=== PATIENT | female | born 1940 | race Caucasian/White ===

== ENCOUNTER 2021-04-16 17:55 | Emergency (ER) | payer MEDICARE, OTHER ==
[~2021-04-16] VITALS: Ht 167.6 cm; Wt 62.1 kg
[~2021-04-16 17:55] MED LIST: CALCIUM CARBON500 MG PO; DIOVAN HCT 3201 EAC1 PO; FOLIC ACID1 MG PO; HYDRALAZINE HCL25 MG PO; METOPROLOL SUCC50 MG PO; PRAVASTATIN SOD40 MG PO; VITAMIN D400 UNIT PO
[2021-04-16] MEDS ORDERED: DICYCLOMINE HCL 20 MG/2 ML VIAL IM ONE (18:00)
[2021-04-16 18:35] LABS: BASOPHILS % 0.2 % (0.0-1.0); EOSINOPHILS % 0.2 % (0.0-6.0); HEMATOCRIT 32.1 % (34.2-44.1); HEMOGLOBIN 10.5 g/dL (12.0-16.0); LYMPHOCYTES # (AUTO) 1.1 (1.0-3.2); LYMPHOCYTES % 19.8 % (18.0-39.1); MEAN CORPUSCULAR HEMOGLOBIN 32.1 pg (28-32); MEAN CORPUSCULAR HGB CONC 32.7 g/dL (31-35); MEAN CORPUSCULAR VOLUME 98.2 fL (81-99); MONOCYTES # (AUTO) 0.9 (0.2-0.8); MONOCYTES % 16.4 % (4.4-11.3); NEUTROPHILS # (AUTO) 3.6 (2.1-6.9); PLATELET COUNT 246 x10e3/uL (140-360); RED BLOOD COUNT 3.27 x10e6/uL (3.6-5.1); RED CELL DISTRIBUTION WIDTH 12.6 % (11.7-14.4)
[2021-04-16 18:50] LABS: ALANINE AMINOTRANSFERASE 14 IU/L (0-55); ALBUMIN/GLOBULIN RATIO 1.1 (0.8-2.0); ALKALINE PHOSPHATASE 89 IU/L (40-150); ANION GAP 16.6 mmol/L (8-16); BLOOD UREA NITROGEN 17 mg/dL (7-26); BUN/CREATININE RATIO 14 (6-25); CALCIUM 10.1 mg/dL (8.4-10.2); CARBON DIOXIDE 25 mmol/L (22-29); CHLORIDE 98 mmol/L (98-107); CREATINE KINASE 96 IU/L (29-168); CREATININE, SERUM 1.22 mg/dL (0.57-1.11); EST GLOMERULAR FILTRATION RATE 42 ML/MIN (60-); GLUCOSE 119 mg/dL (74-118); POTASSIUM 3.6 mmol/L (3.5-5.1); SODIUM 136 mmol/L (136-145)
[2021-04-16 18:59] LABS: AMYLASE 111 U/L (25-125); LIPASE 49 U/L (8-78)
[2021-04-16 19:12] LABS: CLARITY,URINE CLEAR (CLEAR); COLOR,URINE YELLOW (YELLOW); KETONES,URINE NEGATIVE (NEGATIVE); LEUKOCYTE ESTERASE ,URINE TRACE (NEGATIVE); NITRITE,URINE NEGATIVE (NEGATIVE); PROTEIN,URINE DIPSTICK NEGATIVE (NEGATIVE); URINE UROBILINOGEN 0.2 mg/dL (0.2 - 1)
[2021-04-16 19:14] LABS: BACTERIA,URINE FEW /HPF; EPITHELIAL CELLS,URINE FEW /LPF; RBC,URINE >50 /HPF (0-5)
[2021-04-16 19:15] LABS: RENAL EPITHELIAL CELLS,URINE FEW
== END 2021-04-16 22:30 | disposition home or self-care (01) ==
LOC: ER 17:59
DX: N39.0 Urinary tract infection, site not specified (principal); K76.89 Other specified diseases of liver; N28.1 Cyst of kidney, acquired; I10 Essential (primary) hypertension; Z91.041 Radiographic dye allergy status; Z79.899 Other long term (current) drug therapy; Z87.19 Personal history of other diseases of the digestive system
CPT/HCPCS: 36415; 74176; 76705; 80053; 81001; 82150; 82550; 82553; 83690; 84484; 85025; 93005; 99284; C9113; J0500

== ENCOUNTER → 2021-04-28 | Outpatient (CLI) | payer MEDICARE, OTHER ==
[~2021-04-28] MED LIST changes: +GADOBENATE DIMEGLUMINE 1 ML IV ONE; +SODIUM CHLORIDE 0.9% 50ML 50 ML ONE
[2021-04-28 13:06] LABS: CREATININE, SERUM 1.13 mg/dL (0.57-1.11)
== END ==
LOC: MRI 12:10
PROVIDERS: ATTEND Internal Medicine
DX: K76.89 Other specified diseases of liver (principal)
CPT/HCPCS: 36415; 74183; 82565; 84520

== ENCOUNTER 2021-08-15 09:49 | Emergency (ER) | payer MEDICARE, OTHER ==
[~2021-08-15] VITALS: Ht 167.6 cm; Wt 62.1 kg
[~2021-08-15 09:49] MED LIST changes: -GADOBENATE DIMEGLUMINE 1 ML IV ONE; -SODIUM CHLORIDE 0.9% 50ML 50 ML ONE
[2021-08-15] MEDS ORDERED: SODIUM CHLORIDE FLUSH 10 ML SYR IV PRN (10:00)
[2021-08-15 10:15] LABS: BASOPHILS % 0.2 % (0.0-1.0); EOSINOPHILS % 0.2 % (0.0-6.0); HEMATOCRIT 31.4 % (34.2-44.1); HEMOGLOBIN 10.6 g/dL (12.0-16.0); LYMPHOCYTES # (AUTO) 0.8 (1.0-3.2); LYMPHOCYTES % 13.3 % (18.0-39.1); MEAN CORPUSCULAR HEMOGLOBIN 31.9 pg (28-32); MEAN CORPUSCULAR HGB CONC 33.8 g/dL (31-35); MEAN CORPUSCULAR VOLUME 94.6 fL (81-99); MONOCYTES # (AUTO) 0.9 (0.2-0.8); MONOCYTES % 15.1 % (4.4-11.3); NEUTROPHILS # (AUTO) 4.4 (2.1-6.9); NEUTROPHILS % 70.9 % (38.7-80.0); PLATELET COUNT 232 x10e3/uL (140-360); RED BLOOD COUNT 3.32 x10e6/uL (3.6-5.1); RED CELL DISTRIBUTION WIDTH 12.8 % (11.7-14.4)
[2021-08-15 10:33] LABS: LIPASE 40 U/L (8-78)
[2021-08-15 10:35] LABS: ALBUMIN 3.6 g/dL (3.5-5.0); ALBUMIN/GLOBULIN RATIO 0.8 (0.8-2.0); ANION GAP 16.4 mmol/L (8-16); CALCIUM 9.7 mg/dL (8.4-10.2); CREATININE, SERUM 1.22 mg/dL (0.57-1.11); POTASSIUM 3.4 mmol/L (3.5-5.1)
[2021-08-15 10:56] LABS: CLARITY,URINE CLEAR (CLEAR); COLOR,URINE YELLOW (YELLOW); KETONES,URINE NEGATIVE (NEGATIVE); LEUKOCYTE ESTERASE ,URINE NEGATIVE (NEGATIVE); NITRITE,URINE NEGATIVE (NEGATIVE); PROTEIN,URINE DIPSTICK TRACE (NEGATIVE)
[2021-08-15 10:57] LABS: URINE UROBILINOGEN 0.2 mg/dL (0.2 - 1)
[2021-08-15 11:00] LABS: BACTERIA,URINE MANY /HPF; EPITHELIAL CELLS,URINE FEW /LPF; RBC,URINE >50 /HPF (0-5); WBC,URINE (MAN) 0-5 /HPF (0-5)
[2021-08-15] MEDS ORDERED: ULTRAM 50MG50 MG PO (11:55)
== END 2021-08-15 12:53 | disposition home or self-care (01) ==
LOC: ER 10:10
DX: R10.30 Lower abdominal pain, unspecified (principal); N39.0 Urinary tract infection, site not specified; I10 Essential (primary) hypertension; D64.9 Anemia, unspecified
CPT/HCPCS: 36415; 74176; 80053; 81001; 83690; 84484; 85025; 99284